=== PATIENT | female | born 1955 | race Caucasian/White ===

== ENCOUNTER → 2017-01-25 | Outpatient (CLI) | payer MEDICARE, OTHER, MEDICAID ==
[~2017-01-25] MED LIST: AMBI10TA PO; BACL10P IT; BISA10SU24 RECTAL; COLA100C PO; FAMO1TAB37 PO; FLUT1SPR5 EACH NARE; GUAI400T8 PO; LEXA20TA PO; METR-1 PO; MIRA3350 PO; MULTTAB67 PO; NORC5TAB PO; OXYC-395 PO; REGL5TAB PO; SENN8.6T36 PO; SIME40DR3 PO; TH C450C PO; TRAZ50TA12 PO; TYLE325T PO
--- NOTE | 2017-01-26 14:51 | EKG ---
Date Performed: 01/25/2017 Time Performed: 13:55:27 PTAGE: 61 years EKG: Sinus rhythm POSSIBLE INFERIOR MYOCARDIAL INFARCTION MODERATE T-WAVE ABNORMALITY, CONSIDER LATERAL ISCHEMIA ABNOR MAL ECG PREVIOUS TRACING : 07/10/2012 14.25 Since previous tracing, no significant change noted DOCTOR: Zeeshan Sumner Interpretating Date/Time 01/26/2017 14:49:56
== END ==
LOC: PHPRE 12:55
PROVIDERS: ATTEND Pain Medicine Interventional Pain Medicine
DX: Z01.810 Encounter for preprocedural cardiovascular examination (principal)
CPT/HCPCS: 93005

== ENCOUNTER → 2017-02-01 | Day surgery (SDC) | payer MEDICARE, OTHER ==
[~2017-02-01] VITALS: Ht 165.1 cm; Wt 54.5 kg
[~2017-02-01] MED LIST changes: +BACLOFEN PF INJ 10 MG/20 ML KIT IT ONE; +CHLORHEXIDINE GLUCONATE 2 % 1 PACK (2 CLOTHS) TOPICAL PRN; +CHLORHEXIDINE GLUCONATE 4% SOLN 120 ML BTL TOPICAL PRN; +FAMOTIDINE 20 MG/2 ML VIAL ONE; +INSULIN HUMAN REGULAR 1,000 UNITS/10 ML VIAL SQ PRN; +LACTATED RINGER'S 1000 ML INJ 1,000 ML ONE; +LACTATED RINGER'S 1000 ML IV PRN; +LIDOCAINE 1%/EPINEPHrine 1:100,000 SOLN 20 ML VIAL ONE; +METOCLOPRAMIDE HCL 10 MG/2 ML VIAL ONE; +METOPROLOL TARTRATE 25 MG TAB PO PRN; +METRONIDAZOLE 500 MG/100 ML ISONTONIC SOLN IV ONE; +MIDAZOLAM HCL 2 MG/2 ML VIAL ONE; +ONDANSETRON HCL 4 MG/2 ML VIAL IV PUSH ONE; +PHENYLEPH/NS 1000 MCG/10 ML SYR IV ONE; +POVIDONE IODINE 5% (ANTISEPSIS KIT) 4 APPLICATIONS EACH NARE PRN; +PROPOFOL 200 MG/20 ML AMP IV ONE; +SODIUM CHLORID 0.9% 500 ML IV PRN; +SODIUM CHLORIDE 0.9% INJ 100 ML ONE; +VANCOMYCIN 500 MG/NS 100 ML IV ONE; +VANCOMYCIN HCL 1000 MG VIAL ONE; +ceFAZolin 1,000 MG/NS 100 ML IV SCH; +ceFAZolin INJ 1,000 MG VIAL ONE; +ePHEDrine/NS 25 MG/5 ML SYR IV ONE; +fentaNYL CITRATE 250 MCG/5 ML AMP ONE
[2017-02-01 16:15] VITALS: BP 137/74; PULSE 83; RESP 16; TEMP 98.2; O2SAT 100
--- NOTE | 2017-02-03 21:47 | MP ---
cc: Koki REID 02/01/2017 57 PROCEDURE Replacement of implanted [employer] incremental pump PREPROCEDURE DIAGNOSIS End of battery life for implanted pump POSTPROCEDURE DIAGNOSIS End of battery life for implanted pump PROCEDURE NOTE IV was started in the holding area. The patient was given IV antibiotics. Consent forms were signed. The patient was taken to the operating room, placed in the supine position. All pressure points were checked and padded. She was anesthetized and LMA device was used. Her abdomen was prepped with Chloraprep and draped with sterile drapes. The skin over the implanted pump was infiltrated with 1% lidocaine containing epinephrine. Then an incision was made over the implanted pump and blunt and sharp dissection were used to free the pump from the underlying tissue. Then a new [employer] Synchromed II pump was filled with sterile medication on the side table and primed. Then the old pump was disconnected from the intrathecal catheter and the new pump was connected to the intrathecal catheter. The redundant catheter was coiled behind the pump. It was placed in the subcutaneous pocket with the injection ports facing the skin. Then two 2-0 Ethibond sutures were used to anchor the pump to the underlying Dacron cuff and fascia. The incision then was irrigated with Betadine. Closure took place with 3-0 Monocryl in a subcuticular tissue and 3-0 nylon on the skin. Incisions were covered with sterile adhesive dressings and the patient was taken to the recovery room with stable vital signs neurologically intact. MD OMAIRA Nelson/ /2:34 PM /9:28 PM
== END | disposition home or self-care (01) ==
LOC: PHSDC 10:33
PROVIDERS: ATTEND Pain Medicine Interventional Pain Medicine
DX: Z45.49 Encounter for adjustment and management of other implanted nervous system device (principal); G35 Multiple sclerosis
CPT/HCPCS: 00300; 62362; C1772; J0475; J0690; J2250; J2370; J2405; J2765; J3010; J3370; J7120